=== PATIENT | male | born 1975 | race Hispanic/Latino ===

== ENCOUNTER 2018-10-29 10:58 | Day surgery (SDC) | payer OTHER ==
[~2018-10-29 10:58] MED LIST: DIPRIVAN 10 MG/ML IV ONE; NACL 0.9% 1000 ML 1,000 ML IV SCH
--- NOTE | 2018-10-29 12:11 | Anesthesia Day of Surgery ---
Anesthesia Day of Surgery - Day of Surgery Patient Examined: Yes Patient H&P Reviewed: Yes Patient is NPO: Yes
--- NOTE | 2018-10-29 12:15 | Anesthesia Consultation ---
Anesthesia Consult and Med Hx Date of service: 10/29/18 - Airway Anesthetic Teeth Evaluation: Chipped, Caps ROM Head & Neck: Adequate Mental/Hyoid Distance: Adequate Mallampati Class: Class III Intubation Access Assessment: Probably Good - Pre-Operative Health Status ASA Pre-Surgery Classification: ASA2 Proposed Anesthetic Plan: MAC - Pulmonary Hx Smoking: Yes (Quit) Hx Sleep Apnea: Yes (??) - Gastrointestinal Hx Ulcer: Yes Hx Gastroesophageal Reflux Disease: Yes (Ulcerative colitis, celiac disease, Batista's esoph.) - Endocrine Hx Non-Insulin Dependent Diabetes: Yes - Hematic Hx Anemia: No (Thrombocytopenia)
[2018-10-29] MEDS ORDERED: INFANTS' GAS RELIEF PO ONE (13:32)
--- NOTE | 2018-10-29 13:58 | Post Anesthesia Evaluation ---
- Post Anesthesia Evaluation Patient Participated: Yes Airway Patent: Yes Stable Respiratory Function: Yes Nausea/Vomiting: No Temp > 96.8F: Yes Pain Manageable: Yes Adequeate Hydration: Yes Anesthesia Complications: No Block Receding Appropriately: Not Applicable Patient on Ventilator: No
--- NOTE | 2018-10-29 14:09 | Operative Report ---
Operative Report Operative Report: Procedure: Colonoscopy with multiple biopsies. Attending physician: Medardo Cruz MD Banker Mason: Medardo Cruz MD Indication: Patient is a 43-year-old male who presents for surveillance colonoscopy, because of personal history of Crohn's disease. A colonoscopy serves to evaluate patient so that treatment may be directed based on the findings. Consent: Informed consent was obtained after advising the patient and family regarding nature of this procedure, its indications, potential benefits as well as possible complications including but not limited to bleeding perforation and adverse reaction to medication, infection as well as other cardiopulmonary complications. An informed written and verbal consent was then obtained after due opportunity was provided for questions and answers. Monitoring: Patient was monitored continuously with pulse oximetry and electrocardiographic recordings as well as blood pressure recordings. Vital signs remained stable throughout this procedure with no untoward events. Preoperative assessment: Patient was assessed immediately prior to this pr ocedure for capacity to tolerate monitored anesthesia care and moderate sedation as well as general anesthesia. Patient's ASA classification is 2, Mallampati class is 2, Hyomental distance is 3. Instrument: Olympus video colonoscope.: CF-HQ 190L Medications: Propofol given intravenously in divided doses. For details please refer to anesthesia records. Description of procedure: Patient was placed in the left lateral decubitus position after achieving sedation, a digital rectal examination was performed following which the colonoscope was introduced into the anal verge and advanced to the cecum which was identified by the cecal valve, the appendiceal orifice, as well as by the cecal strap and direct transillumination. The terminal ileum was then intubated. The colonoscope was subsequently withdrawn with careful inspection of all mucosal surfaces. Patient tolerated this procedure well and was subsequently taken to the recovery room. The following findings were noted. Findings: The cecum appeared relatively normal. There was a focal area of inflammation seen in proximal ascending colon. This was biopsied. The rest of the ascending colon appeared relatively normal. The transverse colon and the descending colon appeared grossly abnormal with severe colitis multiple areas with ulceration interposed with multiple polyps/inflammatory pseudopolyps with surrounding mucosal edema and ulcerations. Several biopsies were obtained from the transverse colon as well as descending colon for histopathology. The descending colon inflammation extended to the proximal sigmoid colon. Beyond this in the mid sigmoid colon and distal sigmoid colon the entirety of the mucosal pattern appeared normal again several biopsies were obtained from this area for histopathology. The rectum appeared relatively normal however there was a focal area of ulceration and inflammation with surrounding edema and erythema aphthous ulceration. Biopsies again were obtained from this area for histopathology. On a retroflexed view at the anal verge, patient had internal hemorrhoids. Impression: The colitis involving the transverse and descending colon. Focal colitis involving the rectum. Focal colitis involving the proximal ascending colon. Internal hemorrhoids. Plan: Follow pathology report High-fiber diet. Schedule outpatient follow-up in 2 weeks. Direct additional treatment based on the pathology report.
--- NOTE | 2018-10-29 14:10 | Discharge Summary ---
Short Stay Discharge Plan Activity: advance as tolerated Weight Bearing Status: Weight Bear as Tolerated Diet: regular Additional Instructions: Avoid Aspirin NSAIDS D/C Instructions Avoid the following for the time period specified by your physician: -Asprin (Delaney, Bufferin, Excedrin, Goody's or BC Powders) -Ibuprofen (Advil or Motrin) -Naproxen (Aleve or Naprosyn) -Indomethacin, Sulindac, Etodolac, Diclofenac - Meloxicam, Piroxicam, Tenoxicam, Droxicam, Lornoxicam, Isoxicam -Mefenamic acid, Meclofenamic acid, Flufenamic acid, Tolfenamic acid -Celecoxib (Celebrex) AVOID ALL OF THE ABOVE FOR 3 DAYS Post Sedation D/C Instructions When you return home you may resume your regular diet unless otherwise directed. -Go directly home from the hospital and rest quietly. You may resume normal activities tomorrow. -Do NOT drive, return to work, operate any machinery or make any important personal or business decisions today. -Do NOT drink any alcohol or take nerve or sleeping drugs. They add to the effects of the medicine still present in your body. Follow up with: [facility] [Primary Care Provider] - 7 Days
[2018-10-29 14:22] VITALS: BP 134/83
[2018-10-29] MEDS ORDERED: WATER FOR IRRIG STERILE IR ONE (14:24)
[2018-10-29] MEDS ORDERED: XYLOCAINE MPF 2% ONE (14:30)
== END 2018-10-29 14:23 | disposition home or self-care (01) ==
LOC: GIO 10:58
PROVIDERS: ATTEND Internal Medicine Gastroenterology
DX: K51.80 Other ulcerative colitis without complications (principal); K64.8 Other hemorrhoids; K63.89 Other specified diseases of intestine; K62.89 Other specified diseases of anus and rectum; E11.9 Type 2 diabetes mellitus without complications; G47.30 Sleep apnea, unspecified; K21.9 Gastro-esophageal reflux disease without esophagitis; Z87.891 Personal history of nicotine dependence; Z98.890 Other specified postprocedural states; Z86.2 Personal history of diseases of the blood and blood-forming organs and certain disorders involving the immune mechanism
CPT/HCPCS: 45380; 82962; 88305; J2704